=== PATIENT | male | born 1960 | race Caucasian/White ===

== ENCOUNTER 2021-07-31 13:26 | Outpatient (CLI) | payer OTHER | END 2021-07-31 13:27 | disposition home or self-care (01) | LOC: CSHRAD 13:26 | PROVIDERS: ATTEND Psychiatry & Neurology Neurology | DX: M50.30 Other cervical disc degeneration, unspecified cervical region (principal); M47.812 Spondylosis without myelopathy or radiculopathy, cervical region | CPT/HCPCS: 72040 ==